=== PATIENT | female | born 1980 | race Caucasian/White ===

== ENCOUNTER → 2017-03-29 | Outpatient (REF) | payer OTHER | LOC: M LAB REF 12:18 | DX: J11.1 Influenza due to unidentified influenza virus with other respiratory manifestations (principal) ==

== ENCOUNTER → 2017-06-23 | Outpatient (CLI) | payer OTHER | LOC: M RAD 14:27 | DX: J32.4 Chronic pansinusitis (principal) | CPT/HCPCS: 70486 ==

== ENCOUNTER 2017-10-06 07:14 | Day surgery (SDC) | payer OTHER ==
[~2017-10-06 07:14] MED LIST: LIDOCAINE 1% MDV 20ML VIAL SQ; LR 1,000 ML IV
[2017-10-06 07:38] LABS: HEMATOCRIT 37.9 % (36.0-47.0); HEMOGLOBIN 12.7 g/dl (12.0-15.5); MEAN CORPUSCULAR HEMOGLOBIN 29.7 pg (27.0-33.0); MEAN CORPUSCULAR HGB CONC 33.5 g/dl (32.0-36.5); MEAN CORPUSCULAR VOLUME 88.6 fl (80.0-96.0); PLATELET COUNT, AUTOMATED 329 10^3/uL (150-450); RED BLOOD COUNT 4.28 10^6/uL (4.00-5.40); RED CELL DISTRIBUTION WIDTH 13.2 % (11.5-14.5); WHITE BLOOD COUNT 6.8 10^3/uL (4.0-10.0)
[2017-10-06 08:05] LABS: CONTROL LINE UCG INT CTR LINE PRESENT; URINE PREG TEST NEGATIVE (NEGATIVE)
[2017-10-06] MEDS ORDERED: PROPOFOL 200 MG/20 ML VIAL As Ordered (08:07)
[2017-10-06] MEDS ORDERED: LIDOCAINE 2% INJ 100 MG/5 ML SDV (FOR ANES.) As Ordered (08:08)
[2017-10-06] MEDS ORDERED: fentaNYL 100 MCG/2 ML INJECTION (J3010) As Ordered ×2 (08:08→09:22)
[2017-10-06] MEDS ORDERED: MIDAZOLAM INJ 2 MG/2 ML VIAL (J2250) As Ordered (08:08)
[2017-10-06] MEDS ORDERED: dexameTHASONE 4 MG/ML 1ML VIAL (J1100) As Ordered ×3 (08:08→08:47)
[2017-10-06] MEDS ORDERED: ROCURONIUM BROMIDE 50 MG/5 ML VIAL As Ordered (08:08)
[2017-10-06] MEDS ORDERED: ONDANSETRON 4MG/2ML VIAL (J2405) As Ordered ×2 (08:08→09:01)
[2017-10-06] MEDS: METHYLENE BLUE 0.5% (5MG/ML) 10 ML AMP (PROVAYBLUE)(Q9968 PER 1MG) As Ordered (08:42)
[2017-10-06] MEDS: OXYMETAZOLINE NASAL SPRAY (AFRIN) As Ordered ×2 (08:42→09:35)
[2017-10-06] MEDS ORDERED: ALBUTEROL 6.7GM INHALER **FOR ANES. CART/OMNICELL ONLY As Ordered (08:44)
[2017-10-06] MEDS ORDERED: SUGAMMADEX SODIUM 500 MG/5 ML VIAL (BRIDION) As Ordered (09:04)
[2017-10-06] MEDS: LIDOCAINE W/EPINEPHRINE 1% 20ML VIAL As Ordered (09:07)
[2017-10-06] MEDS: SODIUM CHLORIDE 0.9% NASAL GEL 15GM (AYR) As Ordered (10:23)
[2017-10-06] MEDS ORDERED: ONDANSETRON 4MG/2ML VIAL (J2405) IV (11:15)
[2017-10-06] MEDS ORDERED: fentaNYL 100 MCG/2 ML INJECTION (J3010) IV (11:15)
[2017-10-06] MEDS ORDERED: PERCOCET 5MG/325MG TAB PO (11:15)
[2017-10-06] MEDS ORDERED: LR 1,000 ML IV (11:15)
[2017-10-06] MEDS ORDERED: MORPHINE 10 MG/ML 1ML VIAL (J2270) IV (11:15)
[2017-10-06] MEDS: ACETAMINOPHEN TAB 650MG DOSE (2X325MG) PO (11:45)
[2017-10-06] MEDS: METOCLOPRAMIDE INJ 10MG/2ML VIAL (J2765) IV (12:15)
[2017-10-06] MEDS ORDERED: ACETAMINOPH W/CODEINE #3 TAB UD As Ordered (12:42)
== END 2017-10-06 12:50 | disposition home or self-care (01) ==
LOC: M SDC 07:14
DX: J32.4 Chronic pansinusitis (principal); R09.81 Nasal congestion; J45.909 Unspecified asthma, uncomplicated; D64.9 Anemia, unspecified; R51 Headache; T88.59XD Other complications of anesthesia, subsequent encounter; Z79.899 Other long term (current) drug therapy
CPT/HCPCS: 31257

== ENCOUNTER → 2017-11-11 | Outpatient (REF) | payer OTHER ==
[2017-11-11 19:36] LABS: INFLUENZA A AMPLIFICATION NEGATIVE (NEGATIVE); INFLUENZA B AMPLIFICATION NEGATIVE (NEGATIVE)
== END ==
LOC: M LAB REF 17:53
DX: R50.9 Fever, unspecified (principal)

== ENCOUNTER → 2018-05-31 | Outpatient (CLI) | payer OTHER ==
[~2018-05-31] MED LIST changes: +ALBU17IN2 INH; +ANUS2.5C2 TOP; +BALANCED SALT SOLN OPHTH 15 ML BTL XX ONE; +BREO1INH INH; +BUSP10TA PO; +CLAR1TAB2 PO; +COLA100C5 PO; +FLON1SPR; +IRON240T PO; +ISOVUE-300 61% 100ML VIAL (Q9967) As Ordered ONE; -LIDOCAINE 1% MDV 20ML VIAL SQ; -LR 1,000 ML IV; +MOM30SS PO; +MOTR200T44 PO; +PRENTAB40 PO; +PROPARACAINE 0.5% OPHTH SOL 15ML XX ONE; +SING10TA32 PO; +SYNT50TA PO; +TYLE325T5 PO; +ZYRT10CA5 PO
--- NOTE | 2018-06-01 07:41 | REP ---
Dacryocystography: History: Acute bilateral dacryocystitis. Bilateral obstruction. Technique: The injection and the cannulation were performed by Dr. Diamond. Fluoroscopic imaging was provided. Fluoroscopy time is 0.8 minutes. Findings: On the initial bilateral injection there was delayed filling of the tubing on the right suggesting some air in the tubing. The left injection showed filling of a normal inferior, superior, and common canalicular segments. The lacrimal sac is dilated and obstructed at the level of the middle turbinate. No contrast is seen entering the nasopharynx. On the right, a repeat injection done unilaterally demonstrates normal inferior and superior canaliculi and obstruction at the level of the common canaliculus. No contrast is seen beyond the proximal common canaliculus. Contrast is seen refluxing into the palpebral fissure. Impression: Bilateral obstruction, complete. On the right, the obstruction is at the level of the common canaliculus. On the left, the obstruction appears to be at the nasal lacrimal duct. The left nasal lacrimal sac is dilated. Electronically Signed by Jesus Kelley MD 06/01/2018 09:10 A
== END ==
LOC: M RADPRO 14:34
PROVIDERS: ATTEND Ophthalmology
DX: H04.323 Acute dacryocystitis of bilateral lacrimal passages (principal)
CPT/HCPCS: 68850; 70170; Q9967

== ENCOUNTER → 2018-07-07 | Outpatient (REF) | payer OTHER ==
[~2018-07-07] MED LIST changes: -BALANCED SALT SOLN OPHTH 15 ML BTL XX ONE; -ISOVUE-300 61% 100ML VIAL (Q9967) As Ordered ONE; -PROPARACAINE 0.5% OPHTH SOL 15ML XX ONE
== END ==
LOC: M LAB REF 15:33
PROVIDERS: ATTEND Physician Assistant Medical
DX: J02.9 Acute pharyngitis, unspecified (principal)

== ENCOUNTER → 2018-09-07 | Outpatient (REF) | payer OTHER | LOC: M LAB REF 12:26 | PROVIDERS: ATTEND Nurse Practitioner Family | DX: Z02.1 Encounter for pre-employment examination (principal) ==

== ENCOUNTER → 2018-09-07 | Outpatient (REF) | payer OTHER | LOC: M LAB REF 12:35 | PROVIDERS: ATTEND Nurse Practitioner Family | DX: Z02.1 Encounter for pre-employment examination (principal) ==

== ENCOUNTER → 2019-09-28 | Outpatient (CLI) | payer BC, OTHER ==
[~2019-09-28] MED LIST changes: -ALBU17IN2 INH; +PROV108A INH
[2019-09-28 16:23] LABS: BASO % 0.4 % (0.0-1.0); EOS # 0.4 10^3/uL (0.0-0.5); EOS % 5.5 % (0.0-3.0); HEMOGLOBIN 13.3 g/dl (12.0-15.5); LYMPH # 2.2 10^3/uL (1.5-5.0); LYMPH % 30.8 % (24.0-44.0); MEAN CORPUSCULAR HGB CONC 31.7 g/dl (32.0-36.5); MEAN CORPUSCULAR VOLUME 91.7 fl (80.0-96.0); MONO # 0.5 10^3/uL (0.0-0.8); MONO % 7.3 % (0.0-5.0); NEUTROPHILS % 55.7 % (36.0-66.0); PLATELET COUNT, AUTOMATED 397 10^3/uL (150-450); RED BLOOD COUNT 4.58 10^6/uL (4.00-5.40); WHITE BLOOD COUNT 7.2 10^3/uL (4.0-10.0)
[2019-09-28 17:14] LABS: ALT/SGPT 29 U/L (12-78); BILIRUBIN,TOTAL 0.4 MG/DL (0.2-1.0); BLOOD UREA NITROGEN 5 MG/DL (7-18); CALCIUM LEVEL 9.2 MG/DL (8.5-10.1); CARBON DIOXIDE LEVEL 28 MEQ/L (21-32); CHLORIDE LEVEL 106 MEQ/L (98-107); CREATININE FOR GFR 0.68 MG/DL (0.55-1.30); GLOMERULAR FILTRATION RATE > 60.0 (>60); GLUCOSE, FASTING 103 MG/DL (70-100); IMMUNOGLOBULIN G 1680 MG/DL (681-1648); POTASSIUM SERUM 4.1 MEQ/L (3.5-5.1); SODIUM LEVEL 138 MEQ/L (136-145); TOTAL PROTEIN 8.3 GM/DL (6.4-8.2)
[2019-09-28 19:11] LABS: ERYTHROCYTE SEDIMENTATION RATE 10 mm/hr (0-20)
[2019-10-08 14:07] LABS: ANTI TETANUS ANTIBODY >7.00 IU/mL (<0.10); STREP PNEUMO TYPE 1 5.3 ug/mL (>1.3); STREP PNEUMO TYPE 12F 0.8 ug/mL (>1.3); STREP PNEUMO TYPE 14 11.3 ug/mL (>1.3); STREP PNEUMO TYPE 18C 0.7 ug/mL (>1.3); STREP PNEUMO TYPE 19A 6.4 ug/mL (>1.3); STREP PNEUMO TYPE 19F 6.1 ug/mL (>1.3); STREP PNEUMO TYPE 23F 0.6 ug/mL (>1.3); STREP PNEUMO TYPE 3 >55.8 ug/mL (>1.3); STREP PNEUMO TYPE 4 1.8 ug/mL (>1.3); STREP PNEUMO TYPE 6B 1.3 ug/mL (>1.3); STREP PNEUMO TYPE 8 19.9 ug/mL (>1.3); STREP PNEUMO TYPE 9N 1.8 ug/mL (>1.3)
== END ==
LOC: M LAB 14:43
PROVIDERS: ATTEND Allergy & Immunology Allergy
DX: Z02.1 Encounter for pre-employment examination (principal); D84.9 Immunodeficiency, unspecified

== ENCOUNTER → 2020-01-24 | Outpatient (CLI) | payer BC ==
--- NOTE | 2020-01-24 15:25 | REP ---
INDICATION: F45.8 OTHER SOMATOFORM DISORDERS. COMPARISON: None. TECHNIQUE: The procedure was performed by Abby Donnelly, [facility], under the direct supervision of Dr. Dr. Kelley. The procedure was performed with Alix Pereira from speech pathology present. 5 ml aliquots of thin, pudding, mixed fruit, soft food, hard food and pill consistency barium was administered. FINDINGS: There is a small anterior osteophyte of C5-6. There was flash penetration with thin consistency barium. The detailed report of this examination will be provided by speech pathology. IMPRESSION: Flash penetration with thin consistency barium, a detailed report will be provided by speech pathology. 1.1 minutes of fluoroscopy time was utilized for this procedure. Some fluoroscopic images are performed with last image hold technology. These images require no additional radiation <Electronically signed by Abby Donnelly > 01/24/20 1420 <Electronically signed by Kaiser Kelley > 01/24/20 [id number]
== END ==
LOC: M ST 12:46
PROVIDERS: ATTEND Registered Nurse
DX: F45.8 Other somatoform disorders (principal)

== ENCOUNTER → 2020-02-06 | Outpatient (REF) | payer BC ==
[2020-02-08 08:09] LABS: RUBEOLA IgG ANTIBODY >300.0 AU/mL (Immune >16.4)
== END ==
LOC: M LAB REF 16:09
PROVIDERS: ATTEND Registered Nurse
DX: Z02.1 Encounter for pre-employment examination (principal)

== ENCOUNTER → 2020-03-08 | Outpatient (REF) | payer BC | LOC: M LAB REF 09:14 | PROVIDERS: ATTEND Dermatology | DX: C44.619 Basal cell carcinoma of skin of left upper limb, including shoulder (principal) ==

== ENCOUNTER → 2020-10-12 | Outpatient (CLI) | payer BC ==
[2020-10-12 10:19] LABS: HEMATOCRIT 40.5 % (36.0-47.0); MEAN CORPUSCULAR HEMOGLOBIN 29.1 pg (27.0-33.0); MEAN CORPUSCULAR HGB CONC 32.1 g/dl (32.0-36.5); MEAN CORPUSCULAR VOLUME 90.6 fl (80.0-96.0); PLATELET COUNT, AUTOMATED 342 10^3/uL (150-450); RED BLOOD COUNT 4.47 10^6/uL (4.00-5.40); WHITE BLOOD COUNT 5.4 10^3/uL (4.0-10.0)
[2020-10-12 10:26] LABS: BASO % 0.6 % (0.0-1.0); EOS # 0.2 10^3/uL (0.0-0.5); EOS % 3.4 % (0.0-3.0); LYMPH # 1.9 10^3/uL (1.5-5.0); LYMPH % 35.7 % (24.0-44.0); MONO # 0.5 10^3/uL (0.0-0.8); MONO % 8.5 % (2.0-8.0); NEUTROPHILS # 2.7 10^3/uL (1.5-8.5); NEUTROPHILS % 51.4 % (36.0-66.0)
--- NOTE | 2020-10-12 10:38 | REP ---
INDICATION: MILD PERSISTENT ASTHMA UNCOMPLICATED. COMPARISON: PA and lateral chest, 01/18/2008. TECHNIQUE: Upright PA and lateral images of the chest were performed. FINDINGS: The lungs are clear. The heart borders, mediastinum and pulmonary vascular pattern are normal. The upper abdominal bowel gas pattern is normal. There are no bony abnormalities of the chest. IMPRESSION: No evidence of acute cardiopulmonary pathology. No significant change. <Electronically signed by Silviano Pretty > 10/12/20 [id number]
== END ==
LOC: M RAD 09:46
PROVIDERS: ATTEND Allergy & Immunology Allergy
DX: J45.30 Mild persistent asthma, uncomplicated (principal)

== ENCOUNTER → 2020-10-14 | Outpatient (REF) | LOC: M EMP 13:23 | PROVIDERS: ATTEND Family Medicine | DX: Z20.822 Contact with and (suspected) exposure to COVID-19 (principal) ==

== ENCOUNTER → 2020-10-16 | Outpatient (REF) | LOC: M LABSMTC 09:54 | PROVIDERS: ATTEND Family Medicine | DX: Z20.822 Contact with and (suspected) exposure to COVID-19 (principal) ==

== ENCOUNTER → 2020-11-05 | Outpatient (CLI) | payer BC ==
--- NOTE | 2020-11-05 09:30 | REPVR ---
PROCEDURE INFORMATION: Exam: CT Maxillofacial Without Contrast, Sinus Exam date and time: 11/05/2020 7:50 AM Age: 40 years old Clinical indication: Sinusitis; Chronic TECHNIQUE: Imaging protocol: CT Maxillofacial without contrast. Focus on the sinuses. Radiation optimization: All CT scans at this facility use at least one of these dose optimization techniques: automated exposure control; mA and/or kV adjustment per patient size (includes targeted exams where dose is matched to clinical indication); or iterative reconstruction. COMPARISON: CT Maxilofacial w/out contrast 06/23/2017 2:32 PM FINDINGS: There are interval postoperative changes with nasal windows with bilateral uncinectomies and partial ethmoidectomies and left middle turbinectomy. There is also right sphenoidotomy. The new maxillary ostia are patent. There is persistent significant polypoid mucosal thickening throughout paranasal sinuses. This is less extensive in right mid to posterior ethmoids and right frontal sinuses. There is opacification in superior aspect of nasal cavities and sphenoid ethmoidal recesses. Right sphenoidotomy is lateral to the sphenoid ostium. There is also fluid in bilateral maxillary and left frontal sinuses. There is no evidence of bony destructive process. Orbits appear unremarkable. No evidence extension sinus disease into orbits. Nasal septum is again mildly deviated to right. IMPRESSION: Postoperative changes in paranasal sinuses. Continued diffuse mucosal sinus disease is polypoid. Superimposed fluid may indicate acute sinusitis. Electronically signed by: Heidi Mahajan On 11/05/2020 09:29:56 AM
== END ==
LOC: M RAD 07:42
PROVIDERS: ATTEND Allergy & Immunology Allergy
DX: J32.9 Chronic sinusitis, unspecified (principal)

== ENCOUNTER → 2021-06-28 | Outpatient (CLI) | payer BC, OTHER ==
[~2021-06-28] MED LIST changes: +CLAR1TAB13 PO; +DYMI137S; +EQL160TA PO; +OMEP-173 PO; +SYMB16INH INH; +XHAN93MI
== END ==
LOC: M LABSMTC 09:59
PROVIDERS: ATTEND Anesthesiology
DX: Z01.812 Encounter for preprocedural laboratory examination (principal); Z11.52 Encounter for screening for COVID-19

== ENCOUNTER 2021-07-03 12:35 | Day surgery (SDC) | payer BC ==
[~2021-07-03] VITALS: Ht 160 cm; Wt 55.7 kg
[~2021-07-03 12:35] MED LIST changes: +LIDOCAINE 2% 100MG/5ML SDV (FOR ANES.) As Ordered ONE; +NS 1,000 ML IV ONE; +propofoL 200 MG/20 ML VIAL As Ordered ONE
[2021-07-03] MEDS ORDERED: fentaNYL 100 MCG/2 ML INJECTION As Ordered ONE (14:38)
[2021-07-03 15:20] VITALS: BP 109/75
== END 2021-07-03 15:34 | disposition home or self-care (01) ==
LOC: M OPP 12:35
PROVIDERS: ATTEND Internal Medicine Gastroenterology
DX: K31.89 Other diseases of stomach and duodenum (principal); R12 Heartburn; R05.3 Chronic cough; J31.2 Chronic pharyngitis; J04.0 Acute laryngitis; Z79.1 Long term (current) use of non-steroidal anti-inflammatories (NSAID); Z79.51 Long term (current) use of inhaled steroids; Z79.899 Other long term (current) drug therapy; Z80.0 Family history of malignant neoplasm of digestive organs; Z80.3 Family history of malignant neoplasm of breast
CPT/HCPCS: 43239; 88305; J3010

== ENCOUNTER → 2021-07-11 | Outpatient (CLI) | payer BC ==
[~2021-07-11] MED LIST changes: -LIDOCAINE 2% 100MG/5ML SDV (FOR ANES.) As Ordered ONE; -NS 1,000 ML IV ONE; -propofoL 200 MG/20 ML VIAL As Ordered ONE
== END ==
LOC: M LAB 08:04
PROVIDERS: ATTEND Internal Medicine Gastroenterology
DX: K90.0 Celiac disease (principal)

== ENCOUNTER → 2021-09-22 | Outpatient (CLI) | payer BC | LOC: M WHC 07:33 | PROVIDERS: ATTEND Internal Medicine Gastroenterology | DX: Z13.820 Encounter for screening for osteoporosis (principal); K90.0 Celiac disease ==

== ENCOUNTER → 2021-10-14 | Outpatient (CLI) | payer BC ==
[~2021-10-14] MED LIST changes: +ALBU6.7H6 INH; +E-Z-PAQUE 96% w/w SUSP 176GM BTL As Ordered ONE; -PROV108A INH
== END ==
LOC: M RAD 08:43
PROVIDERS: ATTEND Internal Medicine Gastroenterology
DX: K90.0 Celiac disease (principal)

== ENCOUNTER → 2022-03-12 | Outpatient (CLI) | payer BC ==
[~2022-03-12] MED LIST changes: -E-Z-PAQUE 96% w/w SUSP 176GM BTL As Ordered ONE
== END ==
LOC: M LAB 12:45
PROVIDERS: ATTEND Internal Medicine Gastroenterology
DX: K90.0 Celiac disease (principal)

== ENCOUNTER → 2022-04-09 | Outpatient (REF) | payer BC ==
[~2022-04-09] MED LIST changes: +MONT-5 PO; -SING10TA32 PO
[2022-04-09 17:53] LABS: PERCENT SATURATION 10.6 % (13.2-45.0)
[2022-04-09 17:57] LABS: FERRITIN 14.7 NG/ML (7.3-270.7)
== END ==
LOC: M LAB REF 16:13
PROVIDERS: ATTEND Internal Medicine
DX: N93.8 Other specified abnormal uterine and vaginal bleeding (principal)

== ENCOUNTER → 2022-04-27 | Outpatient (CLI) | payer BC | LOC: M WHC 11:05 | PROVIDERS: ATTEND Internal Medicine | DX: N93.9 Abnormal uterine and vaginal bleeding, unspecified (principal); R87.89 Other abnormal findings in specimens from female genital organs ==

== ENCOUNTER → 2022-05-15 | Outpatient (CLI) | payer BC | LOC: M WHC 15:15 | PROVIDERS: ATTEND Internal Medicine | DX: E04.2 Nontoxic multinodular goiter (principal) ==

== ENCOUNTER 2022-06-19 16:45 | Emergency (ER) | payer BC ==
[~2022-06-19] VITALS: Ht 160 cm; Wt 57.4 kg
[2022-06-19] MEDS ORDERED: BOOSTRIX VACCINE (TETANUS/DIPHTH/ACEL. PERTUSSIS) 0.5ML SYR IM ONE (17:25)
[2022-06-19] MEDS ORDERED: DERMABOND TOPICAL SKIN ADHESIVE TOP ONE (17:25)
[2022-06-19 18:09] VITALS: BP 122/84
== END 2022-06-19 18:15 | disposition home or self-care (01) ==
LOC: M ED 16:45
DX: S61.101A Unspecified open wound of right thumb with damage to nail, initial encounter (principal); W27.4XXA Contact with kitchen utensil, initial encounter; Y92.009 Unspecified place in unspecified non-institutional (private) residence as the place of occurrence of the external cause; Z79.52 Long term (current) use of systemic steroids; Z79.83 Long term (current) use of bisphosphonates; Z79.899 Other long term (current) drug therapy

== ENCOUNTER → 2022-08-25 | Outpatient (REF) | payer BC ==
[2022-08-26 11:47] LABS: PERCENT SATURATION 43.8 % (13.2-45.0)
[2022-08-26 11:49] LABS: FERRITIN 24.7 NG/ML (7.3-270.7)
== END ==
LOC: M LAB REF 10:16
PROVIDERS: ATTEND Internal Medicine
DX: D50.9 Iron deficiency anemia, unspecified (principal)

== ENCOUNTER 2022-09-25 11:06 | Day surgery (SDC) | payer BC ==
[~2022-09-25] VITALS: Ht 160 cm; Wt 55.9 kg
[~2022-09-25 11:06] MED LIST changes: +FAMO40TA3 PO; +PANT40TA29 PO
[2022-09-25] MEDS ORDERED: fentaNYL 100 MCG/2 ML INJECTION As Ordered ONE (11:37)
[2022-09-25] MEDS ORDERED: MIDAZOLAM INJ 2MG/2ML VIAL As Ordered ONE (11:37)
[2022-09-25] MEDS ORDERED: propofoL 200 MG/20 ML VIAL As Ordered ONE (11:37)
[2022-09-25] MEDS ORDERED: ONDANSETRON 4MG 2ML VIAL As Ordered ONE (11:38)
[2022-09-25] MEDS ORDERED: LIDOCAINE 2% 100MG/5ML SDV (FOR ANES.) As Ordered ONE (11:38)
[2022-09-25 11:49] LABS: HEMATOCRIT 40.1 % (36.0-47.0); HEMOGLOBIN 13.1 g/dl (12.0-15.5); MEAN CORPUSCULAR HEMOGLOBIN 29.4 pg (27.0-33.0); MEAN CORPUSCULAR HGB CONC 32.7 g/dl (32.0-36.5); MEAN CORPUSCULAR VOLUME 89.9 fl (80.0-96.0); PLATELET COUNT, AUTOMATED 364 10^3/uL (150-450); RED BLOOD COUNT 4.46 10^6/uL (4.00-5.40); WHITE BLOOD COUNT 8.1 10^3/uL (4.0-10.0)
[2022-09-25] MEDS ORDERED: LR 1,000 ML IV SCH ×2 (12:20→13:25)
[2022-09-25 12:21] LABS: HCG, SERUM QUALITATIVE NEGATIVE (NEGATIVE)
[2022-09-25] MEDS ORDERED: ACETAMINOPHEN 1000MG 100ML IV BAG As Ordered ONE (12:43)
[2022-09-25] MEDS ORDERED: HYDROMORPHONE HCL 0.5 MG/ 0.5 ML SYRINGE IV PRN (13:25)
[2022-09-25] MEDS ORDERED: fentaNYL 100 MCG/2 ML INJECTION IV PRN (13:25)
[2022-09-25] MEDS ORDERED: oxyCODONE 5MG TAB PO PRN (13:25)
[2022-09-25] MEDS ORDERED: ONDANSETRON 4MG 2ML VIAL IV PRN (13:25)
[2022-09-25 13:57] VITALS: BP 119/76; TEMP 97.9; O2SAT 98
== END 2022-09-25 14:22 | disposition home or self-care (01) ==
LOC: M SDC 11:06
PROVIDERS: ATTEND Obstetrics & Gynecology
DX: N84.0 Polyp of corpus uteri (principal); N93.9 Abnormal uterine and vaginal bleeding, unspecified; E03.9 Hypothyroidism, unspecified; K90.0 Celiac disease; K21.9 Gastro-esophageal reflux disease without esophagitis; D64.9 Anemia, unspecified; J45.909 Unspecified asthma, uncomplicated; F41.9 Anxiety disorder, unspecified; Z79.899 Other long term (current) drug therapy; Z79.51 Long term (current) use of inhaled steroids
CPT/HCPCS: 36415; 58558; 84703; 85027; 86850; 86900; 86901; 88305; J0131; J1100; J2250; J2405; J3010

== ENCOUNTER → 2022-10-14 | Outpatient (REF) | payer BC | LOC: M LAB REF 16:31 | PROVIDERS: ATTEND Internal Medicine | DX: D50.9 Iron deficiency anemia, unspecified (principal) ==

== ENCOUNTER → 2023-06-25 | Outpatient (CLI) | payer BC ==
[2023-06-25 09:41] LABS: C REACTIVE PROTEIN QUANTITATIV < 0.40 MG/DL (<1.0)
[2023-06-25 09:43] LABS: ALBUMIN 3.7 G/DL (3.2-5.2); ALKALINE PHOSPHATASE 57 U/L (46-116); ALT/SGPT 18 U/L (7.0-40); AST/SGOT 16 U/L (<34); BILIRUBIN,TOTAL 0.4 MG/DL (0.3-1.2); BLOOD UREA NITROGEN 8 MG/DL (9-23); CALCIUM LEVEL 8.9 MG/DL (8.5-10.1); CARBON DIOXIDE LEVEL 28 MMOL/L (20-31); CHLORIDE LEVEL 102 MMOL/L (98-107); CREATININE FOR GFR 0.62 MG/DL (0.55-1.30); GLOMERULAR FILTRATION RATE > 60.0 (>58); GLUCOSE, FASTING 82 MG/DL (60-100); POTASSIUM SERUM 3.9 MMOL/L (3.5-5.1); SODIUM LEVEL 137 MMOL/L (136-145); TOTAL PROTEIN 7.5 G/DL (5.7-8.2)
[2023-06-26 15:07] LABS: ANTINUCLEAR ANTIBODIES DIRECT Negative (Negative); SJOGREN'S ANTI SS-A <0.2 AI (0.0-0.9); SJOGREN'S ANTI SS-B 0.2 AI (0.0-0.9)
== END ==
LOC: M LAB 07:24
PROVIDERS: ATTEND Otolaryngology
DX: R68.2 Dry mouth, unspecified (principal)

== ENCOUNTER → 2023-07-29 | Outpatient (CLI) | payer BC | LOC: M WHC 10:47 | PROVIDERS: ATTEND Internal Medicine | DX: Z12.31 Encounter for screening mammogram for malignant neoplasm of breast (principal) ==

== ENCOUNTER → 2023-10-19 | Outpatient (REF) | payer BC ==
[2023-10-20 14:06] LABS: FERRITIN 15.6 NG/ML (7.3-270.7); FOLATE 6.5 NG/ML (>5.4)
== END ==
LOC: M LAB REF 12:46
PROVIDERS: ATTEND Internal Medicine
DX: D50.9 Iron deficiency anemia, unspecified (principal)

== ENCOUNTER → 2024-04-26 | Outpatient (REF) | payer BC ==
[2024-04-26 13:18] LABS: FERRITIN 6.7 NG/ML (7.3-270.7)
[2024-04-26 13:19] LABS: FOLATE 8.3 NG/ML (>5.4)
== END ==
LOC: M LAB REF 12:14
PROVIDERS: ATTEND Internal Medicine
DX: D50.9 Iron deficiency anemia, unspecified (principal)

== ENCOUNTER → 2024-06-12 | Outpatient (CLI) | payer BC | LOC: M PLALAB 07:16 | PROVIDERS: ATTEND Internal Medicine Gastroenterology | DX: K90.0 Celiac disease (principal) ==

== ENCOUNTER → 2024-09-13 | Outpatient (CLI) | payer BC ==
[~2024-09-13] MED LIST changes: +ALL10TAB3 PO; +MONT10TA97 PO
== END ==
LOC: M WHC 15:52
PROVIDERS: ATTEND Internal Medicine
DX: Z12.31 Encounter for screening mammogram for malignant neoplasm of breast (principal); R92.333 Mammographic heterogeneous density, bilateral breasts

== ENCOUNTER → 2024-12-01 | Outpatient (REF) | payer BC | LOC: M LAB REF 11:53 | PROVIDERS: ATTEND Internal Medicine | DX: D50.9 Iron deficiency anemia, unspecified (principal) ==

== ENCOUNTER → 2025-01-12 | Outpatient (REF) | payer BC ==
[2025-01-16 14:06] LABS: HPV APTIMA Not Detected (Not Detected)
== END ==
LOC: M PLALAB 09:52
PROVIDERS: ATTEND Student in an Organized Health Care Education/Training Program
DX: Z12.4 Encounter for screening for malignant neoplasm of cervix (principal); R87.611 Atypical squamous cells cannot exclude high grade squamous intraepithelial lesion on cytologic smear of cervix (ASC-H)
CPT/HCPCS: 87624; G0123